=== PATIENT | male | born 1950 | race Caucasian/White ===

== ENCOUNTER 2019-02-03 08:08 | Inpatient (IN) ==
--- NOTE | 2019-01-13 12:56 | Anesthesiology Consultation ---
Date of Service January 13, 2019 Assessment & Plan (1) Encounter for pre-operative examination: - No previous anesthesia records re: intubation. Chart Review Chart Review: Acceptable Risk for Surgery (Pending PCP clearance) and Patient seen in Pre Admission Testing Consults Requested medical (Dr. Limon (~01/27)) Teaching & Discussion Pre-Anesthesia Teaching/Discussion Notes: Instructed NPO after midnight before surgery, except medications with 15 cc of water. Medication instructions provided according to the PAT guidelines. History Surgery Operation Date: 02/03/19 08:30 Proposed Procedures p Left Total Knee Arthoplasty Revision Patella Component Only, Removal Scar Tissue - Sai Odonnell Height/Weight Height: 6 ft 1 in Weight: 104.1 kg Allergies Allergy/AdvReac Type Severity Reaction Status Date / Time meperidine AdvReac Mild NAUSEA AND Verified 01/10/19 11:25 SWEATY Medications Home Medications Medication Instructions Recorded Confirmed Last Taken Garlique 1 tab PO QPM 01/10/19 01/10/19 Unknown cholecalciferol (vitamin D3) 1,000 unit PO QPM 01/10/19 01/10/19 Unknown [Vitamin D3] fluticasone propionate [Flonase 2 spray INTRANASAL DAILY PRN 01/10/19 01/10/19 Unknown Allergy Relief] krill oil 500 mg PO QPM 01/10/19 01/10/19 Unknown naproxen sodium [Aleve] 440 mg PO Q8H PRN 01/10/19 01/10/19 Unknown Past Medical History Medical History Cardiac murmur (Resolved) 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 Able to climb stairs with some difficulty due to knee. Denies CP or SOB. ) Past Family History Family History Mother Family history of diabetes mellitus Father Family history of diabetes mellitus Brother Family history of diabetes mellitus Brother Family history of diabetes mellitus Uncle Family hx of colon cancer Past Surgical History Surgical History H/O eye surgery R/L MUSCLE SURGERY History of herniorrhaphy Inguinal - unsure of side History of rectal surgery RECTAL ABSCESS REMOVAL History of repair of rotator cuff R/L History of total knee replacement LEFT Hx of hemorrhoidectomy Past Anesthesia History No Hx of Anesthesia Complications and No Family Hx of Anesthesia Complications History of PONV No Hx of PONV Social History Smoking Status: Never smoker Do You Dip or Chew Tobacco: No Hx Alcohol Use: Yes Alcohol type: beer and wine alcohol intake frequency: holidays/special occasions only Hx Substance Use: No substance use type: does not use Review of Systems Patient denies chest pain, shortness of breath, dyspnea on exertion, reflux, cough, wheezing, palpitations. +Joint Pain (Left Knee) Physical Exam Vital Signs BP: 130/77 P: 60 R: 14 T: 97.7 SPO2: 97% on RA ENMT Thyromental Distance: > or= 3.5 Finger Breadths (4) Mallampati Class: I Neck normal visual inspection and trachea midline; neck extension not limited Respiratory normal respiratory effort Auscultation: lungs clear to auscultation bilaterally Cardiovascular Rate/Rhythm: regular rate and regular rhythm Heart Sounds: no murmur Vessels: no carotid bruit Neurologic moves all extremities Psychiatric Orientation: alert and oriented x 3 Testing Laboratory Results 01/13/19 13:20 01/13/19 13:20 01/13/19 01/13/19 01/13/19 13:20 13:20 Unknown PT 10.3 INR 1.0 APTT 27.1 Urine Color Yellow Urine Appearance Clear Urine pH 7.5 Ur Specific [place] 1.011 Urine Protein Negative Urine Glucose (UA) Negative Urine Ketones Negative Urine Nitrite Negative Ur Leukocyte Esterase Negative Blood Type A Positive Antibody Screen NEGATIVE 01/13/19 Unknown Urine Culture - Final Urine,Clean Catch No growth - less than 1,000 colonies/mL. MRSA Screen (-) Electrocardiogram Date: 01/13/19 Findings: + SB @ (58) and + no change from (03/02/16) Chest X-Ray Date: 01/13/19 Findings: + NAD FINDINGS: Lung volumes are at the upper limits of normal. Lungs are clear. There is no pneumothorax or pleural effusion. No evidence for pulmonary edema. Cardiac size is normal. Mediastinal contours are unremarkable. IMPRESSION: No acute cardiopulmonary findings.
--- NOTE | 2019-01-13 12:59 | PAT Medication Instructions ---
Medication Instructions Date of Service January 13, 2019 Home Medications Garlique 1 tab PO QPM cholecalciferol (vitamin D3) [Vitamin D3] 1,000 unit PO QPM fluticasone propionate [Flonase Allergy Relief] 2 spray INTRANASAL DAILY NEEDED krill oil 500 mg PO QPM naproxen sodium [Aleve] 440 mg PO Q8H NEEDED ASK your surgeon for instructions naproxen sodium [Aleve] 440 mg PO Q8H NEEDED STOP taking 2 weeks before surgery Garlique 1 tab PO QPM krill oil 500 mg PO QPM DO NOT take the morning of surgery fluticasone propionate [Flonase Allergy Relief] 2 spray INTRANASAL DAILY NEEDED Take morning of surgery NOTHING TO EAT OR DRINK AFTER MIDNIGHT Take evening before surgery cholecalciferol (vitamin D3) [Vitamin D3] 1,000 unit PO QPM Other Notes If you have any questions please call us at [phone] or [phone] or [phone] or [phone]
--- NOTE | 2019-01-13 13:59 | XRay Report ---
XR chest Pre-admission PA/Lat CLINICAL HISTORY: Preoperative evaluation. COMPARISON STUDY: Chest radiograph March 02, 2016. FINDINGS: Lung volumes are at the upper limits of normal. Lungs are clear. There is no pneumothorax o r pleural effusion. No evidence for pulmonary edema. Cardiac size is normal. Mediastinal contours are unremarkable. IMPRESSION: No acute cardiopulmonary findings. Electronically signed by: Dionte Hadley M.D. 01/13/2019 1:57 PM
[2019-01-13 14:32] LABS: Basophils # (auto) 0.02 K/uL (0-0.2); Basophils % (auto) 0.4 %; Eosinophils # (auto) 0.09 K/uL (0-0.5); Eosinophils % (auto) 1.9 %; Hematocrit (blood only) 42.5 % (42-52); Hemoglobin 14.4 g/dL (14.0-18.0); Lymphocytes # (auto) 1.38 K/uL (1.2-3.4); Lymphocytes % (auto) 28.6 %; Mean Corpuscular Hgb Conc 33.9 g/dL (32-36); Mean Corpuscular Volume 94.7 fL (80-100); Mean Platelet Volume 10.1 fL (7.4-10.4); Monocytes # (auto) 0.22 K/uL (0.11-0.59); Monocytes % (auto) 4.6 %; Neutrophils # (auto) 3.12 K/uL (1.4-6.5); Neutrophils % (auto) 64.5 %; Platelet Count 200 K/uL (130-400); RDW Coefficient of Variation 13.3 % (11.5-14.5); RDW Standard Deviation 45.9 fL (36.4-46.3); Red Blood Count 4.49 M/uL (4.7-6.1); White Blood Count 4.83 K/uL (4.8-10.8)
[2019-01-13 14:39] LABS: Appearance Urine Clear (Clear); Bilirubin Urine Negative (Negative); Blood Urine Negative (Negative); Color Urine Yellow; Glucose Urine UA Negative (Negative); Ketones Urine Negative (Negative); Leukocyte Esterase Urine Negative (Negative); Nitrite Urine Negative (Negative); Protein Urine Negative (Negative); Specific Gravity Urine 1.011 (1.000-1.030); Urobilinogen Urine Negative (Negative); pH Urine 7.5 (4.5-7.5)
[2019-01-13 14:41] LABS: Albumin Level 3.9 gm/dl (3.4-5.0); BUN Creatinine Ratio 18.3 (10-20); Calcium 8.9 mg/dl (8.5-10.1); Creatinine Clr Calc Pharmacy 103.2 ml/min; Est GFR (Non-African American) 88.9; Potassium 4.9 mmol/L (3.5-5.1)
[2019-01-13 14:44] LABS: Albumin Globulin Ratio 1.1 (0.9-2); Bilirubin,Total 0.4 mg/dl (0.2-1); Globulin 3.4 gm/dl (2.5-4.0); Total Protein 7.3 gm/dl (6.4-8.2)
[2019-01-13 14:45] LABS: Partial Thromboplastin Time 27.1 Seconds (21.0-31.0); Prothrombin Time 10.3 Seconds (9.0-12.0)
--- NOTE | 2019-01-31 10:52 | History & Physical Report ---
Date of Service January 31, 2019 Assessment & Plan (1) Aseptic loosening of prosthetic knee: plan is to admit and revise loose left patella and possible scar tissue. History of Present Illness Chief Complaint: left knee pain Primary Care Provider: Avery Limon Pleasant male whos had pain for quite some time. Had TKA previously an diagno sed with loose patella and instability. Allergies Allergy/AdvReac Type Severity Reaction Status Date / Time meperidine AdvReac Mild NAUSEA AND Verified 01/10/19 11:25 SWEATY Home Medications Home Medications Medication Instructions Recorded Confirmed Type Garlique 1 tab PO QPM 01/10/19 01/10/19 History cholecalciferol (vitamin D3) 1,000 unit PO QPM 01/10/19 01/10/19 History [Vitamin D3] fluticasone propionate [Flonase 2 spray INTRANASAL DAILY PRN 01/10/19 01/10/19 History Allergy Relief] krill oil 500 mg PO QPM 01/10/19 01/10/19 History naproxen sodium [Aleve] 440 mg PO Q8H PRN 01/10/19 01/10/19 History Past Med/Surg History Medical History Cardiac murmur (Resolved) 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 Chronic back pain GOES TO CHIROPRACTOR Surgical History H/O eye surgery R/L MUSCLE SURGERY History of herniorrhaphy Inguinal - unsure of side History of rectal surgery RECTAL ABSCESS REMOVAL History of repair of rotator cuff R/L History of total knee replacement LEFT Hx of hemorrhoidectomy Family History Mother Family history of diabetes mellitus Father Family history of diabetes mellitus Brother Family history of diabetes mellitus Brother Family history of diabetes mellitus Uncle Family hx of colon cancer Social History Preferred Language: Lebanese Communication Ability: Effective Barge Loader Required: No Beliefs That Will Affect Care: None Current Living Situation: Spouse Other Information That Helps Us Care for You: No Feels Safe at Home: Yes Safety Concerns: Feels Safe At This Time Smoking Status: Never smoker Do You Dip or Chew Tobacco: No Second Hand Exposure: No (GROWING UP) Hx Alcohol Use: Yes Alcohol type: beer and wine Hx Substance Use: No Review of Systems All systems reviewed & are unremarkable except as noted in HPI & below Physical Exam Constitutional: WD/WN, vitals as above Neck: trachea midline, no thyromegaly Respiratory: normal respiratory effort, lungs clear to auscultation Cardiovascular: RRR, no murmur, no edema Gastrointestinal (Abdomen): normal bowel sounds, soft, nontender, no hepatosplenomegaly Musculoskeletal: Knee: + limited ROM of knee and + knee ROM with crepitation
[~2019-02-03 08:08] MED LIST: ACETAMINOPHEN 500 MG TAB PO SCH; CEFAZOLIN 2000MG 2,000 MG/15 ML SYR IV SCH; CeleBREX 200 MG CAP PO SCH; FAMOTIDINE 20 MG TAB PO SCH; LIDOCAINE HCL 2% 2 ML VIAL/AMP(20MG/ML) INFIL ONE; LR 500ML BOLUS, THEN 15ML/HR IV SCH; LR 60ML/HR IV SCH; METOCLOPRAMIDE HCL 10 MG TABLET PO SCH; MIDAZOLAM HCL 1 MG/ML 2ML VIAL ONE; ONDANSETRON INJ 2 MG/ML 2 ML VIAL ONE; PROPOFOL IV EMULSION 10 MG/ML 20 ML VIAL IV ONE; ROPIVACAINE 0.5% HCL/PF 150 MG, BUPIVACAINE 0.5% MPF 30 ML, EPINEPHrine 30MG/30ML (OR U... INFIL SCH; TRANEXAMIC ACID 1,000 MG **IV Intra-op IV SCH; TRANEXAMIC ACID 1,000 MG **IV Pre-op IV SCH; dexAMETHasone 4 MG TAB PO SCH; fentaNYL citrate 100 MCG/2 ML VIAL ONE
[2019-02-03] MEDS ORDERED: ROPIVACAINE 0.5% 5 MG/ML 30 ML VIAL ONE (08:20)
[2019-02-03] MEDS ORDERED: BUPIVACAINE 0.5 % 5 MG/1 ML PF 10ML VIAL ONE (08:20)
--- NOTE | 2019-02-03 08:23 | History & Physical Bridge Note ---
Date of Service February 03, 2019 History & Physical Bridge Note I have examined the patient, reviewed the History & Physical and in the interval since the performance of the History & Physical I have noted the following changes of clinical significance: no changes noted
[2019-02-03] MEDS ORDERED: fentaNYL citrate 100 MCG/2 ML VIAL IV PRN (08:31)
[2019-02-03] MEDS ORDERED: ONDANSETRON INJ 2 MG/ML 2 ML VIAL IV PRN ×3 (08:31→12:12)
[2019-02-03] MEDS ORDERED: ePHEDrine sulfate 50 MG/ML AMP IV PRN (08:31)
[2019-02-03] MEDS ORDERED: ATROPINE SULFATE 0.1 MG/ML 10ML SYR IV PRN (08:31)
[2019-02-03] MEDS ORDERED: ORTHO JOINT ANESTHETIC ONE (08:41)
[2019-02-03] MEDS ORDERED: BACITRACIN INJ 50,000 UNIT VIAL ONE (08:42)
[2019-02-03] MEDS ORDERED: PROPOFOL IV EMULSION 10 MG/ML 20 ML VIAL IV ONE ×2 (09:15→10:53)
[2019-02-03 09:43] LABS: Albumin Level 3.4 gm/dl (3.4-5.0); BUN Creatinine Ratio 25.2 (10-20); Calcium 9.3 mg/dl (8.5-10.1); Est GFR (Non-African American) 90.6
[2019-02-03 09:45] LABS: Albumin Globulin Ratio 0.9 (0.9-2); Bilirubin,Total 0.5 mg/dl (0.2-1); Globulin 3.6 gm/dl (2.5-4.0)
--- NOTE | 2019-02-03 10:14 | Post Operative Brief Note ---
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
--- NOTE | 2019-02-03 10:20 | Operative Report ---
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 Patient having continued left anterior knee pain and left lateral knee pain despite conservative measures. X-rays and examination revealed a loose patella component as well as some instability of the left knee on ligamentous examination. Patient had a work-up for infection which was negative with sed rate and CRP normal. Despite conservative measures patient want to proceed with operative intervention. Patient brought to the operating room palpated identified by myself anesthesia nursing staff he was given a spinal anesthetic placed on the operating room table in a supine position, tourniquet was applied to left upper thigh and left leg was then prepped and draped in standard orthopedic fashion. Then made an incision midline over the previous incision then dissected down through the subcutaneous tissue making sure to create large full-thickness skin flaps medial and lateral. Then entered the capsule with a medial capsulotomy. Removed all the scar tissue from the medial and lateral gutters and the scar tissue from the undersurface of the patella tendon the patella and the quadriceps tendon. I was able to easily mobilize the patella easily see that it was completely loose. There was a large chunk of cement that was likely protruding into the soft tissue. Thoroughly irrigated the wound. Then with the use of a simple tap of a osteotome the patella component was easily removed. Then made a fresh cleanup cut of the patella it measured to be a size 38 made the appropriate drill holes. Then removed the polyethylene, put trial components in place a size 9 mm constrained insert work perfectly. The previous size was a size 9 PS. Thoroughly irrigated the wound again, then cemented the patella component in place inserted the polyethylene in place. Thoroughly irrigated again then closed the capsule with a 0 Vicryl suture, dermis interrupted 2-0 Vicryl suture the final skin with paula sterile dressings were applied and patient taken recovery room in stable condition. Implants used were a [employer] size 38 all polyethylene patella, and a spent the majority to size 9 mm constrained insert by 8 tibia. Due to the complex nature of the procedure, the entire surgery was performed with the operational assistance of Jeet Osman PA-C. The oncology physician assistant was under direct supervision, was involved in the actual performance of all aspects of the surgical procedure including hemostasis, tissue retraction and incision, instrument management, patient positioning, and wound closure. I attest to the content of the Intraoperative Record and any orders documented therein. Any exceptions are noted below.
--- NOTE | 2019-02-03 11:50 | Anesthesiology Progress Note ---
Date of Service February 03, 2019 Anesthesia Post Procedure Vital Signs Vital Signs: Temp Pulse Pulse Pulse Resp BP BP 02/03/19 11:45 97.5 F L 02/03/19 11:16 58 L 14 118/63 02/03/19 11:15 59 L 16 02/03/19 11:11 62 15 126/63 02/03/19 11:10 77 14 02/03/19 11:06 64 14 122/63 02/03/19 11:05 63 14 02/03/19 11:01 68 15 121/61 02/03/19 11:00 68 19 02/03/19 10:56 65 14 119/58 L 02/03/19 10:55 71 16 02/03/19 10:51 70 14 123/58 L 02/03/19 10:50 97.0 F L 73 68 21 123/58 L 02/03/19 08:43 98.1 F 67 18 154/79 H Pulse Ox 02/03/19 11:45 98 02/03/19 11:16 98 02/03/19 11:15 98 02/03/19 11:11 98 02/03/19 11:10 99 02/03/19 11:06 99 02/03/19 11:05 98 02/03/19 11:01 99 02/03/19 11:00 99 02/03/19 10:56 99 02/03/19 10:55 99 02/03/19 10:51 98 02/03/19 10:50 98 02/03/19 08:43 96 Transfer of Care Handoff Completed per policy Notes Mental Status: alert / awake / arousable and participated in evaluation Patient Amnestic to Procedure: Yes Nausea / Vomiting: adequately controlled Pain: adequately controlled Airway Patency, RR, SpO2: stable & adequate BP & HR: stable & adequate Hydration State: stable & adequate Neuraxial Anesthesia: was administered and sensory block is resolving Anesthetic Complications: no major complications apparent and Pt Satisfied with anesthetic care
[2019-02-03] MEDS ORDERED: BISACODYL 10 MG SUPP PR PRN ×2 (12:12)
[2019-02-03] MEDS ORDERED: MAGNESIUM HYDROXIDE SUSP 30 ML UDC PO PRN ×2 (12:12)
[2019-02-03] MEDS ORDERED: SODIUM CHLORIDE 0.9% 1000ML 1,000 ML IV SCH ×2 (12:12→13:15)
[2019-02-03] MEDS ORDERED: METOCLOPRAMIDE HCL INJ 5 MG/ML 2 ML VIAL IV PRN ×2 (12:12)
[2019-02-03] MEDS ORDERED: ALUMINUM/MAGNESIUM SUSP 30 ML UDC PO PRN (12:12)
[2019-02-03] MEDS ORDERED: NALOXONE HCL 0.4 MG/1 ML VIAL/CARP IV PRN ×2 (12:12)
[2019-02-03] MEDS: ACETAMINOPHEN 500 MG TAB PO SCH ×2 (13:28→21:56)
[2019-02-03] MEDS ORDERED: TRANEXAMIC ACID 1,000 MG in 0.9 % SODIUM CHLORIDE 100 ML IV SCH (16:10)
[2019-02-03] MEDS: CEFAZOLIN 2000MG 2,000 MG/15 ML SYR IV SCH (20:56)
[2019-02-03] MEDS: ASPIRIN 81 MG ECTAB PO SCH (20:57)
[2019-02-03] MEDS: DOCUSATE SODIUM 100 MG CAP PO SCH (20:57)
[2019-02-03] MEDS ORDERED: SENNA 8.6 MG TAB PO SCH ×2 (21:00)
[2019-02-03] MEDS ORDERED: DOCUSATE SODIUM 100 MG CAP PO SCH (21:00)
[2019-02-04] MEDS: CEFAZOLIN 2000MG 2,000 MG/15 ML SYR IV SCH (03:53)
[2019-02-04] MEDS: ACETAMINOPHEN 500 MG TAB PO SCH ×2 (05:31→13:43)
[2019-02-04 05:46] LABS: Hematocrit (blood only) 36.3 % (42-52); Hemoglobin 12.5 g/dL (14.0-18.0); Mean Corpuscular Hgb Conc 34.4 g/dL (32-36); Mean Corpuscular Volume 93.1 fL (80-100); Mean Platelet Volume 10.1 fL (7.4-10.4); Platelet Count 164 K/uL (130-400)
[2019-02-04 06:22] LABS: BUN Creatinine Ratio 23.6 (10-20); Calcium 8.3 mg/dl (8.5-10.1); Creatinine Clr Calc Pharmacy 88.1 ml/min; Est GFR (African American) 88.8; Est GFR (Non-African American) 76.6; Potassium 3.8 mmol/L (3.5-5.1)
--- NOTE | 2019-02-04 07:29 | Anesthesiology Progress Note ---
Date of Service February 04, 2019 Anesthesia Post Procedure Vital Signs Vital Signs: Temp Pulse Pulse Pulse Resp BP BP 02/04/19 07:15 36.5 C 52 L 18 108/66 02/04/19 03:52 36.7 C 55 L 16 106/68 02/03/19 23:45 36.6 C 69 16 102/64 02/03/19 19:48 36.7 C 66 18 02/03/19 15:03 36.5 C 62 18 02/03/19 14:02 36.4 C L 66 18 02/03/19 13:30 02/03/19 13:09 36.8 C 63 18 02/03/19 12:32 62 18 02/03/19 12:00 36.5 C 66 16 02/03/19 11:50 58 L 17 02/03/19 11:46 60 12 126/62 02/03/19 11:45 36.4 C L 57 L 15 02/03/19 11:41 59 L 15 114/60 02/03/19 11:40 59 L 13 02/03/19 11:36 60 17 116/69 02/03/19 11:35 59 L 15 02/03/19 11:31 60 13 129/62 02/03/19 11:30 60 15 02/03/19 11:26 66 20 114/63 02/03/19 11:25 57 L 17 02/03/19 11:21 59 L 15 112/61 02/03/19 11:20 59 L 14 02/03/19 11:16 58 L 14 118/63 02/03/19 11:15 59 L 16 02/03/19 11:11 62 15 126/63 02/03/19 11:10 77 14 02/03/19 11:06 64 14 122/63 02/03/19 11:05 63 14 02/03/19 11:01 68 15 121/61 02/03/19 11:00 68 19 02/03/19 10:56 65 14 119/58 L 02/03/19 10:55 71 16 02/03/19 10:51 70 14 123/58 L 02/03/19 10:50 36.1 C L 73 68 21 02/03/19 08:43 36.7 C 67 18 BP Pulse Ox 02/04/19 07:15 94 02/04/19 03:52 96 06/24/19 23:45 96 02/03/19 19:48 108/63 93 02/03/19 15:03 107/65 94 02/03/19 14:02 134/81 92 02/03/19 13:30 96 02/03/19 13:09 115/61 95 02/03/19 12:32 110/71 97 02/03/19 12:00 131/71 98 02/03/19 11:50 98 02/03/19 11:46 98 02/03/19 11:45 98 02/03/19 11:41 97 02/03/19 11:40 98 02/03/19 11:36 98 02/03/19 11:35 98 02/03/19 11:31 99 02/03/19 11:30 98 02/03/19 11:26 99 02/03/19 11:25 98 02/03/19 11:21 98 02/03/19 11:20 98 02/03/19 11:16 98 02/03/19 11:15 98 02/03/19 11:11 98 02/03/19 11:10 99 02/03/19 11:06 99 02/03/19 11:05 98 02/03/19 11:01 99 02/03/19 11:00 99 02/03/19 10:56 99 02/03/19 10:55 99 02/03/19 10:51 98 02/03/19 10:50 123/58 L 98 02/03/19 08:43 154/79 H 96 Notes Mental Status: alert / awake / arousable and participated in evaluation Patient Amnestic to Procedure: Yes Nausea / Vomiting: adequately controlled Pain: adequately controlled Airway Patency, RR, SpO2: stable & adequate BP & HR: stable & adequate Hydration State: stable & adequate Neuraxial Anesthesia: was administered and sensory block resolved Anesthetic Complications: no major complications apparent
[2019-02-04] MEDS ORDERED: dexAMETHasone 10 MG in SYRINGE 0 ML IV SCH (08:00)
[2019-02-04] MEDS: DOCUSATE SODIUM 100 MG CAP PO SCH (08:24)
[2019-02-04] MEDS: ASPIRIN 81 MG ECTAB PO SCH (08:24)
[2019-02-04] MEDS: OXYCODONE HCL IR 5 MG TAB (IMMEDIATE RELEASE) PO PRN ×2 (08:27→15:02)
--- NOTE | 2019-02-04 08:34 | Progress Note ---
DATE: 02/04/2019 SUBJECTIVE: The patient is postop day 1 status post left revision of his patellar component and polyethylene bearing change from his left TKA. Currently, the patient is sitting up in his chair at the bedside. He is awake and alert and oriented and has good pain control. He denies any shortness of breath, chest pain, or lightheadedness. He is hoping to go home today. OBJECTIVE: Dressings were clean, dry and intact. Calves were soft, nontender. Neurovascularly intact. Toes were mobile. Hemoglobin is 12.5. BUN was mildly elevated at 24. ASSESSMENT: Postop day 1 status post left patellar component revision with polyethylene bearing change. PLAN: PT/OT protocols, weightbearing as tolerated. Continue DVT prophylaxis and pain management. DISCHARGE PLANNING: The patient is hoping for home health services upon discharge. Dr. Franks would be rounding on this patient later today, and depending on how his PT progress goes, possible discharge to home.
[2019-02-04] MEDS ORDERED: MULTIVITAMIN TAB PO SCH (09:00)
--- NOTE | 2019-02-05 16:43 | Discharge Summary ---
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 SECONDARY DIAGNOSES: History of cardiac murmur resolved as a teen, history of skin carcinoma in the past, chronic back pain. CONSULTS: None. COMPLICATIONS: None. PROCEDURES: Left total knee arthroplasty revision patellar component removal of scar tissue, polyethylene bearing change left knee by Dr. Odonnell on 02/03/2019. BRIEF HISTORY: As dictated in the history and physical. HOSPITAL SUMMARY: The patient was admitted on the above-noted date had the above-noted surgery performed, which he tolerated well. On the first postoperative day, the patient was sitting up in the chair at the bedside. He was awake, alert and oriented and had good pain control. He denied any shortness of breath, chest pain or lightheadedness and was hoping to go home that day. Dressings clean, dry and intact. Calves were soft, nontender. Neurovascularly intact. Toes were mobile. Hemoglobin was 12.5, BUN was mildly elevated at 24. He was started on PT and OT protocols and continued on DVT prophylaxis and pain management. Plans were for home health services upon discharge. He was progressing well with his physical therapy and pain was controlled and he was remaining stable and it was felt he could be discharged home on 02/04/2019. For further review, please see chart. LABORATORY AND X-RAY DATA: As per chart. DISCHARGE INSTRUCTIONS: The patient was discharged home in satisfactory condition on 02/04/2019. DIET: Regular. ACTIVITY: Weightbearing as tolerated left lower extremity with walker. Follow [facility] instruction sheets and special care instructions as noted. Follow up with Dr. Odonnell in 2 weeks. The patient to call for appointment if one has made for you. DISCHARGE MEDICATIONS: Acetaminophen 1000 mg p.o. q. 8 hours, aspirin 81 mg p.o. b.i.d., cefadroxil 500 mg p.o. b.i.d., oxycodone 5 mg p.o. q. 4-6 hours p.r.n., sennosides 17.2 mg p.o. at bedtime. Resume home meds as listed and stop taking naproxen.
== END 2019-02-04 15:17 | disposition home health service (06) | DRG 468 ==
LOC: ASU 08:08 → 3E 11:34